=== PATIENT | male | born 1965 | race Caucasian/White ===

== ENCOUNTER 2018-03-02 21:18 | Emergency (ER) | payer OTHER, SELFPAY ==
[2018-03-02 21:26] VITALS: BP 151/96; PULSE 64; RESP 16; TEMP 36.8; O2SAT 99; BMI 22.6
--- NOTE | 2018-03-02 21:29 | ED.CHESTPAIN ---
HPI - Chest Pain General Chief Complaint: Chest Pain Stated Complaint: PRESSURE IN MY CHEST Time Seen by Provider: 03/02/18 21:29 Source: patient Mode of arrival: ambulatory Limitations: no limitations History of Present Illness HPI narrative: The patient complains of chest pain, the pain is the most prevalent in the right anterior lower chest. Pain started about 3 weeks ago and has been intermittent. The pain is not escalating. 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 Pain is somewhat exacerbated by a cough that he developed about the same time. He has had no fever. The cough has been nonproductive. He has had no hemoptysis. He has no associated leg pain or swelling. He does not have dyspnea. He denies any history of asthma, tobacco use, or cardiac problems. He does take medication for hypertension. He is very physically active. He has never had an issue with exercise tolerance. Related Data Allergies Allergy/AdvReac Type Severity Reaction Status Date / Time No Known Drug Allergies Allergy Verified 03/02/18 21:31 Review of Systems Review of Systems All systems reviewed & are unremarkable except as noted in HPI and below Constitutional Denies chills, Denies fever(s), Denies headache(s), Denies lethargy and Denies weakness ENT Ears, Nose, Mouth, and Throat: Denies change in voice, Denies headache(s), Denies neck pain and Denies sore throat Cardiovascular Reports as per HPI, Reports chest pain, Denies irregular heart rhythm, Denies lightheadedness, Denies palpitations, Denies dyspnea, Denies dyspnea on exertion and Denies orthopnea Respiratory Denies cough, Denies dyspnea, Denies dyspnea on exertion and Denies wheezing Gastrointestinal Gastrointestinal: Denies abdominal pain, Denies change in bowel habits, Denies diarrhea, Denies nausea and Denies vomiting Musculoskeletal Denies abnormal gait and Denies neck pain Integumentary/Breasts Denies pruritus, Denies erythema, Denies rash and Denies wounds Neurologic Denies abnormal gait, Denies headache(s), Denies sensory deficit and Denies weakness Endocrine Denies palpitations Allergic/Immunologic Denies wheezing PFSH Medical History GERD (gastroesophageal reflux disease) (Acute) Hypertension (Acute) No significant past surgical history (Acute) Social History Smoking Status: Never smoker Exam Initial Vital Signs Initial Vital Signs: Vital Signs Temperature 98.2 F 03/02/18 21:26 Pulse Rate 64 03/02/18 21:26 Respiratory Rate 16 03/02/18 21:26 Blood Pressure 151/96 H 03/02/18 21:26 Pulse Oximetry 99 03/02/18 21:26 Const General: cooperative and well developed Nutritional Appearance: well nourished Orientation: alert, awake, oriented x3 and not confused [facility] Head: normocephalic and atraumatic Ears: external ears normal and TM's normal bilaterally Nose: external nose normal and No nasal discharge Face and sinus: sinuses nontender, face symmetric, no sinus tenderness and No dry mucous membranes Mouth: oral mucosae normal and moist mucous membranes Teeth and gingiva: dentition normal Throat: tonsils normal and uvula midline Neck Neck: normal visual inspection, trachea midline, No lymphadenopathy, No midline deformity and No JVD Lymphatic: No lymphedema Chest Chest: localized rib tenderness with anteroposterior compression (The palpable tenderness is consistent with his area of chief complaint. The area is also uncomfortable with deep inspiration.) Resp Effort & Inspection: normal respiratory effort, able to speak in complete sentences, no respiratory distress and no use of accessory muscles Auscultation: clear to auscultation bilaterally, no rales, no rhonchi and no wheezes Cardio Rate: regular rate Rhythm: regular rhythm Heart Sounds: no click, no gallops, no murmurs and no rubs Pulses: normal peripheral pulses GI Inspection: non-distended Palpation: soft, no hepatosplenomegaly, No guarding, No pulsatile mass and No tender Auscultation: normal bowel sounds Back/Spine/Pelvis Back: normal to inspection and No back tenderness Skin General: no rashes or lesions noted Neuro General: alert, oriented x3, gait normal and no focal motor deficits Speech: speech normal Extrem General: full ROM and no clubbing, cyanosis or edema Course Course Narrative: His pain is improved somewhat with ibuprofen. Exam is consistent with chest wall pain, the clinical evaluation shows no acute cardiac process and play. He will be discharged home with ibuprofen for his pain. Orders Ordered: Discontinued Medications Ibuprofen (Advil) 800 mg PO NOW ONE Stop: 03/02/18 21:38 Last Admin: 03/02/18 21:54 Dose: 800 mg Vital Signs - 8 hr 03/02/18 21:26 03/02/18 22:46 Temperature 98.2 F Pulse Rate 64 57 L Respiratory Rate 16 13 Blood Pressure 151/96 H Blood Pressure [Left Arm] 131/85 Pulse Oximetry 99 99 MDM - Chest Pain Lab Data Result diagrams: 03/02/18 21:47 03/02/18 21:47 Lab Results 03/02/18 03/02/18 03/02/18 Range/Units 21:47 21:47 21:47 WBC 6.7 (4.5-11.0) X10^3/uL RBC 4.94 (4.5-5.9) X10^6/uL Hgb 14.8 (13.5-17.5) g/dL Hct 43.2 (41-53) % MCV 87.5 (80-100) fL MCH 30.0 (26-34) PG MCHC 34.3 (30-36) % RDW 14.2 (11.6-14.8) % Plt Count 237 (150-400) X10^3/uL Neut % (Auto) 61.9 (50-75) % Lymph % (Auto) 28.3 (25-40) % [place] % (Auto) 7.7 (3-14) % Eos % (Auto) 1.2 L (2-4) % Baso % (Auto) 0.9 (0-2) % Neut # (Auto) 4200 (8179-8041) /uL D-Dimer < 200 (<230) ng/mL Sodium 140 (137-145) mmol/L Potassium 3.9 (3.4-5.1) mmol/L Chloride 101 (98-107) mmol/L Carbon Dioxide 28 (22-32) mmol/L BUN 15 (9-20) mg/dL Creatinine 0.90 (0.66-1.25) mg/dL Estimated GFR > 60.0 (>60) mL/min BUN/Creatinine Ratio 16.7 (6-22) Glucose 96 (70-100) mg/dL Calcium 9.0 (8.4-10.2) mg/dL Total Creatine Kinase 503 H (55-170) U/L CK-MB (CK-2) 4.53 H (<2.37) ng/mL CK-MB (CK-2) Rel Index 0.9 L (1.5-5.0) % Troponin I < 0.012 (0.01-0.034) ng/mL ECG Data Attestation: I personally reviewed and interpreted this ECG as follows: (Normal sinus rhythm rate 62 bpm. Intermediate axis. Nonspecific ST T wave changes. No acute ST-T-wave changes. Normal intervals.) Discharge Plan Departure Patient Disposition: Home Clinical Impression: Acute chest wall pain Discharge Date/Time: 03/02/18 23:01 Interventions: ED Discharge Assessment Last Done: 03/02/18 23:01 Instructions: Costochondritis Activity Restrictions/Additional Instructions: Advil 3 tablets every 6 hr as needed for pain. Follow up with your doctor in 2-3 weeks of symptoms do not improve. Return here if symptoms escalate.
[2018-03-02] MEDS: IBUPROFEN 400 MG TABLET 800 MG PO (21:54)
[2018-03-02 22:04] LABS: Add Manual Diff / Slide Review NO; Basophils Percent Auto 0.9 % (0-2); Eosinophils Percent Auto 1.2 % (2-4); Hematocrit 43.2 % (41-53); Hemoglobin 14.8 g/dL (13.5-17.5); Lymphocytes Percent Auto 28.3 % (25-40); Mean Corpuscular HGB Conc 34.3 % (30-36); Mean Corpuscular Volume 87.5 fL (80-100); Monocytes Percent Auto 7.7 % (3-14); Neutrophils Absolute Auto 4200 /uL (1500-7000); Neutrophils Percent Auto 61.9 % (50-75); Platelet Count 237 X10^3/uL (150-400); Red Blood Cell Count 4.94 X10^6/uL (4.5-5.9); Red Cell Distribution Width 14.2 % (11.6-14.8); White Blood Cell Count 6.7 X10^3/uL (4.5-11.0)
[2018-03-02 22:14] LABS: BUN Creatinine Ratio 16.7 (6-22); Blood Urea Nitrogen 15 mg/dL (9-20); Carbon Dioxide 28 mmol/L (22-32); Chloride 101 mmol/L (98-107); Creatine Kinase 503 U/L (55-170); Estimated Glomerular Filt Rate > 60.0 mL/min (>60); Glucose 96 mg/dL (70-100); HEMOLYSIS < 15 (0-50); Potassium 3.9 mmol/L (3.4-5.1); Sodium 140 mmol/L (137-145)
[2018-03-02 22:15] LABS: D Dimer < 200 ng/mL (<230)
[2018-03-02 22:27] LABS: Troponin I < 0.012 ng/mL (0.01-0.034)
[2018-03-02 22:28] LABS: CKMB % Relative Index 0.9 % (1.5-5.0); Creatine Kinase MB 4.53 ng/mL (<2.37)
[2018-03-02 22:46] VITALS: BP 131/85; PULSE 57; RESP 13; O2SAT 99
== END 2018-03-02 23:01 | disposition home or self-care (01) ==
PROVIDERS: Emergency Provider Emergency Medicine
DX: R07.89 Other chest pain (principal)
CPT/HCPCS: 36415; 80048; 82550; 82553; 84484; 85025; 85379; 93005; 99282; 99284

== ENCOUNTER → 2021-05-20 13:00 | Outpatient (CLI) | payer OTHER, SELFPAY ==
--- NOTE | 2021-05-20 13:02 | DI.RAD.S_ITS ---
PROCEDURE: XR CHEST 2V INDICATIONS: cough TECHNIQUE: 2 views of the chest were acquired. COMPARISON: [facility], , CHEST 1 VIEW, 08/03/2013, 10:35. FINDINGS: Surgical changes and devices: None. Lungs and pleura: Lungs are clear. No pleural effusions or pneumothorax. Mediastinum: Mediastinal contours are normal. Heart size is normal. Bones and chest wall: No suspicious bony abnormalities. Soft tissues appear unremarkable. IMPRESSION: No evidence acute pulmonary process. Dictated by: Pineda Ren M.D. on 05/20/2021 at 12:25 Approved by: Pineda Ren M.D. on 05/20/2021 at 12:25
== END ==
PROVIDERS: Referring Provider Nurse Practitioner Family; Visit Provider Nurse Practitioner Family
DX: R05.9 Cough, unspecified (principal)
CPT/HCPCS: 71046